=== PATIENT | male | born 1980 | race Caucasian/White ===

== ENCOUNTER 2023-05-26 09:16 | Emergency (ER) | payer OTHER, SELFPAY ==
[2023-05-26 09:27] VITALS: BP 155/88
[2023-05-26 11:06] VITALS: BP 127/85
--- NOTE | 2023-05-26 11:14 | EDRN ---
Pt is awaiting to be seen by ED HCP
--- NOTE | 2023-05-26 11:36 | ED.GENMED ---
History of Present Illness
General
Chief Complaint: Musculo-Skeletal Complaint
Source: patient
Exam Limitations: none
Time Seen by Provider: 05/26/23 10:40
Nursing documentation reviewed up to this point in time: agreed with
Travel History
Have you had any contact with someone who has COVID-19?: No
Do you have any symptoms of coronavirus? Fever > 100 degrees, chills, cough, shortness of breath, sore throat, loss of taste or smell, muscle aches, or headache?: No
History of Present Illness
History of Present Illness:
Patient is a 42-year-old male who presents to the ER for evaluation. Patient complains of right calf pain. He reports around 4 AM he woke up with intense pain in his right calf. He does report that he was able to get back to sleep and pain seem
to subside. He now has a lot of pain in his right calf. He does feel that this is more swollen.
No prior history of DVT. He does report that recently placed on diabetic medicine and cholesterol medicine 2 weeks ago. He since then has had outpatient blood work. He does feel very thirsty despite drinking water but denies any urinary frequency.
He denies any fever chills shortness of breath.
Review of Systems
Review of Systems
Allergies reviewed?: Yes
All Other Systems: ROS reviewed and negative except as documented in HPI and ROS
Constitutional: Reports no symptoms; Denies fever, fatigue or chills
EENT: Reports no symptoms
Respiratory: Reports no symptoms
Cardiac: Reports no symptoms
ABD/GI: Reports no symptoms
Musculoskeletal: Reports other (right calf pain )
Skin: Reports no symptoms
Neurological: Reports no symptoms
Psychiatric: Reports no symptoms
Phy Exam
General Physical Exam
General Presentation: no apparent distress
General age: appears stated age
General Skin: warm and dry
General Habitus: normal
General Mental: alert
General Hydration: appears well hydrated
Neurological Exam
Neurological Exam: alert and oriented x3
Musculoskeletal Exam
Musculoskeletal Exam: full ROM and other (Right lower extremity with strong pulses no obvious redness to calf questionable very minimal swelling if any, tender to the calf muscle strong distal pulses normal distal sensation normal cap refill)
Skin Exam
Skin Exam: normal color and warm/dry
Psychiatric Exam
Psychiatric Exam: normal mood/affect
Course
Orders/Labs/Results
Orders:
Orders
05/26/23 11:34
IV Insert/Care/Rem.- Treatment PRN
Venous Doppler Lwr Ext Rt [ Perip Venous LOWER Ext RT] Urgent
Comment:
Reason For Exam: swelling//pain to right calf
05/26/23 12:01
CPK Isoenzyme Urgent
Complete Blood Count/With Diff Urgent
Comprehensive Metabolic Panel Urgent
05/26/23 15:46
Ketorolac [Toradol] 15 mg IV NOW STA
Abnormal Lab Results
05/26/23
12:01
MCH 32.8 H pg
(27.0-31.0)
RDW 11.4 L %
(11.5-14.5)
Eosinophils % 6.2 H %
(0-6)
Chloride 111 H mmol/L
(98-107)
Glucose 122 H mg/dl
(70-99)
ALT 85 H U/L
(0-50)
05/26/23 12:01
05/26/23 12:01
Vital Signs
Initial and Last Documented VS:
Initial Vital Signs
Temp Pulse Resp BP Pulse Ox
98.1 F 78 16 155/88 98
05/26/23 09:27 05/26/23 09:27 05/26/23 09:27 05/26/23 09:27 05/26/23 09:27
Last Documented Vital Signs
Temp Pulse Resp BP Pulse Ox
98.1 F 67 16 126/85 98
05/26/23 09:27 05/26/23 15:04 05/26/23 15:04 05/26/23 15:04 05/26/23 15:04
Language Pathologist consulted with Physician
Language Pathologist consulted with physician?: Yes
Name of Physician Consulted: Noh
MDM/Problems Addressed
Differential Diagnosis Includes:
not limited to: Myalgia from statin drug, DVT, muscle pain
MDM/Problems Addressed:
Patient is a 6-year-old male who presents to the ER complaining of right calf pain that awoke him from sleep in the middle of the night. Patient denies any actual injury. He does feel that his calf is mildly swollen. He denies any fever or
chills. He was started on new medications including diabetic meds and cluster medicine 2 weeks ago. Patient presents awake alert no acute distress on exam calf is very minimally swollen no redness mildly tender no fevers. She is afebrile with
normal white count strong pulses normal distal sensation normal cap refill. Ultrasound negative for DVT.
With recent meds labs checked normal CPK white count normal hemoglobin normal with normal kidney function, a ALT is minimally elevated. Patient able to bear weight. Discussed with patient close outpatient follow with PCP if symptoms continue
repeat ultrasound recommended. He was educated on return if any worsening of symptoms including increased pain numbness tingling cold blue toes. Will DC on ibuprofen, ice and heat with outpatient PCP follow-up. I did review with patient the
importance of having his ALT checked by his family doctor.
*Radiology
Radiology exam reviewed: radiology read reviewed
*Pulse Oximetry
Patient hypoxic: no
*Critical Care Note
Total Time (30-74mins, 75-104mins- exclusive of procedures): Not Applicable
ED Attending Note
-
Portions of this chart may have been created with voice recognition software.� Occasional wrong word or��sound alike� substitutions may have occurred due to the inherent limitations of voice recognition software.
Discharge Plan
Departure
Patient Disposition: Home (Routine Discharge)
Date of Disposition: 05/26/23
Time of Disposition: 15:37
Patient with high blood pressure during this ER visit?: Yes
Condition: Fair
Covid-19: Not Applicable
Discharge Problem:
Calf pain
Instructions: Muscle and Bone Pain (DC), BLOOD PRESSURE
Referrals:
Shoaib Mendoza DO [Family Provider] -
Activity Restrictions/Additional Instructions:
You were seen here today for right calf pain. As discussed ultrasound was negative for blood clot. Ice affected area for 20 minutes at a time several times a day then followed by warm moist heat after 24 hours. You may take ibuprofen 600 mg every
hours with food. Keep elevated much as possible. Follow-up however with your family doctor for reevaluation of symptoms. It is possible you may need repeat ultrasound if symptoms persist. Return if any worsening of symptoms of increased pain
swelling numbness or cold blue toes, redness fever chills.
Have your family doctor reevaluate your ALT, liver function test as it was mildly. test will need to be repeat
Interventions
Interventions:
*Risk Screen - Suicide Last Done: 05/26/23 11:14
*General Assessment Last Done: 05/26/23 11:13
*Neglect/Abuse Screening Last Done: 05/26/23 11:13
ED- Fall Risk Assessment Last Done: 05/26/23 11:10
*ED COVID-19 Vaccine History Last Done: 05/26/23 09:27
ED-Musculoskeletal Assessment Last Done: 05/26/23 11:10
[2023-05-26 12:05] VITALS: BP 118/77
[2023-05-26 12:12] LABS: % Basophils 0.6 % (0-2); % Eosinophils 6.2 % (0-6); % Immature Granulocytes 0.2 % (0-0.5); % Lymphocytes 29.7 % (20.5-51.1); % Monocytes 7.5 % (1.7-9.3); % Neutrophils 55.8 % (42.2-75.2); Absolute Eosinophils 0.3 10^3/uL (0-0.7); Absolute Lymphocytes 1.4 10^3/uL (1.2-3.4); Absolute Monocytes 0.4 10^3/uL (0.1-0.6); Absolute Neutrophils 2.7 10^3/uL (1.4-6.5); Hematocrit 43.2 % (39.0-52.0); Hemoglobin 15.7 g/dL (13.0-18.0); Mean Corp Hgb Conc. 36.3 g/dL (33.0-37.0); Mean Corpuscular Hgb 32.8 pg (27.0-31.0); Mean Corpuscular Volume 90.4 fL (80.0-94.0); Mean Platelet Volume 9.9 fL (7.4-10.4); Nucleated Red Blood Cells % 0 % (-); Platelet Count 324 10^3/uL (130-400); Red Blood Cell Count 4.78 10^6/uL (4.70-6.10); Red Cell Dist. Width 11.4 % (11.5-14.5); White Blood Cell Count 4.8 10^3/uL (4.8-10.8)
[2023-05-26 12:16] VITALS: BMI 29.6
[2023-05-26 12:34] LABS: ALT (SGPT) 85 U/L (0-50); AST (SGOT) 40 U/L (17-59); Albumin 4.1 g/dl (3.5-5.0); Alkaline Phosphatase 82 U/L (38-126); Blood Urea Nitrogen 10 mg/dl (9-20); Calcium 8.6 mg/dl (8.4-10.2); Carbon Dioxide 25 mmol/L (22-30); Chloride 111 mmol/L (98-107); Estimated Creatinine Clearance > 125 ml/min; Glucose 122 mg/dl (70-99); Potassium 3.8 mmol/L (3.5-5.1); Sodium 138 mmol/L (135-145); Total Bilirubin 0.6 mg/dl (0.2-1.3); Total CK 61 U/L (55-170); Total Protein 6.4 g/dl (6.3-8.2); eGFR > 60.00
[2023-05-26 13:30] VITALS: BP 112/69
[2023-05-26 15:04] VITALS: BP 126/85
[2023-05-26] MEDS: TORADOL 15 MG IV (15:57)
--- NOTE | 2023-05-26 16:12 | EDRN ---
Pt administered water to drink and will be discharged post a recheck on his pain post toradol 15 mg IV.
[2023-05-26 17:00] VITALS: BP 125/75
== END 2023-05-26 17:05 | disposition home or self-care (01) ==
LOC: EMR 09:16
PROVIDERS: Nurse Practitioner; EMERGENCY PHYSICIAN Emergency Medicine; FAMILY PHYSICIAN Family Medicine
DX: M79.661 Pain in right lower leg (principal); E11.9 Type 2 diabetes mellitus without complications
CPT/HCPCS: 99284; 96374; 80053; 82550; 85025; 93971